=== PATIENT | female | born 1990 | race Caucasian/White ===

== ENCOUNTER 2016-12-31 16:05 | Inpatient (IN) | payer OTHER ==
[~2016-12-31] VITALS: Ht 154.9 cm; Wt 88.9 kg
[2016-12-31] MEDS ORDERED: PREN-380 PO (16:43)
[2016-12-31] MEDS ORDERED: FERR325E14 PO (16:43)
[2016-12-31] MEDS ORDERED: LACTATED RINGERS 1,000 ML IV SCH (16:44)
[2016-12-31] MEDS ORDERED: PROMETHAZINE 25 MG/ML VIAL IVP PRN (16:45)
[2016-12-31] MEDS ORDERED: CARBOPROST 250 MCG/ML AMP IM PRN (16:45)
[2016-12-31] MEDS ORDERED: NALBUPHINE HYDROCHLORIDE 10 MG/ML VIAL IVP PRN (16:45)
[2016-12-31] MEDS ORDERED: METHYLERGONOVINE 0.2 MG/ML AMP IM PRN ×2 (16:45→22:10)
[2016-12-31] MEDS ORDERED: OXYTOCIN 10 UNITS/ML VIAL IM SCH (16:45)
[2016-12-31] MEDS ORDERED: OXYTOCIN 20 UNITS/LR PREMIX 1,000 ML IV SCH (17:00)
[2016-12-31 17:24] LABS: BASOPHILS % (AUTO) 0.5 % (0.0-2.0); EOSINOPHILS % (AUTO) 0.3 % (0.0-4.0); HEMATOCRIT 38.4 % (36-48); HEMOGLOBIN 12.6 g/dL (12.0-16.0); LYMPHOCYTES # (AUTO) 1.1 K/uL (2.5-16.5); LYMPHOCYTES % (AUTO) 15.1 % (20.5-51.1); MEAN CORPUSCULAR HEMOGLOBIN 29 pg (27-31); MEAN CORPUSCULAR HGB CONC 33 g/dL (33-37); MEAN CORPUSCULAR VOLUME 89 fL (80-94); MONOCYTES # (AUTO) 0.4 K/uL (0.8-1.0); MONOCYTES % (AUTO) 6.1 % (1.7-9.3); NEUTROPHILS # (AUTO) 5.6 K/uL (1.8-7.7); PLATELET COUNT (AUTO) 194 K/uL (140-450); RED BLOOD CELL COUNT(AUTO) 4.31 MIL/uL (4.20-5.40); RED CELL DISTRIBUTION WIDTH 13.6 % (11.6-13.7); WHITE BLOOD COUNT (AUTO) 7.1 K/uL (4.8-10.8)
[2016-12-31 17:36] LABS: APPEARANCE,URINE CLEAR (CLEAR); BILIRUBIN,URINE NEGATIVE (NEGATIVE); BLOOD, URINE 1+ (NEGATIVE); COLOR,URINE YELLOW (YELLOW); LEUKOCYTE ESTERASE ,URINE NEGATIVE (NEGATIVE); NITRITE, URINE NEGATIVE (NEGATIVE); PH,URINE 6.5 (5.0-9.0); PROTEIN,URINE NEGATIVE (NEGATIVE); UGLUCOSE NEGATIVE (NEGATIVE); UROBILINOGEN,URINE 0.2 EU/dL (0.2 - 1)
[2016-12-31 17:40] LABS: ANION GAP 12.4 (8-16); CALCIUM 8.5 mg/dL (8.5-10.1); CARBON DIOXIDE 23.2 mmol/L (21-32); CREATININE 0.5 mg/dL (0.6-1.3); POTASSIUM 3.6 mmol/L (3.5-5.1)
[2016-12-31 17:41] LABS: BACTERIA,URINE 1+ /HPF (None Seen); WBC,URINE 0-3 /HPF (0-5)
[2016-12-31 17:46] LABS: TOTAL BILIRUBIN 0.4 mg/dL (0.0-1.0); TOTAL PROTEIN, SERUM 6.6 g/dL (6.4-8.2)
[2016-12-31 19:31] LABS: AMPHETAMINE, URINE NEG. ng/ml (NEG <=1000); BARBITURATE, URINE NEG. ng/ml (NEG <=200); BENZODIAZEPINE, URINE NEG. ng/mL (NEG <=200); CANNABINOID, URINE NEG. ng/mL (NEG <=50); COCAINE, URINE NEG. ng/mL (NEG <=300); OPIATE, URINE NEG. ng/mL (NEG <=2000); PHENCYCLIDINE SCREEN,URINE NEG. ng/mL (NEG <=25)
[2016-12-31] MEDS ORDERED: MISOPROSTOL 25 MCG TAB VG SCH (20:00)
[2016-12-31] MEDS ORDERED: BUPIVACAINE-MPF 0.75% 10 ML VIAL INJ ONE (21:53)
[2016-12-31] MEDS ORDERED: CITRIC ACID/SODIUM CITRATE 30 ML UDC ONE (21:54)
[2016-12-31] MEDS ORDERED: CITRIC ACID/SODIUM CITRATE 30 ML UDC PO SCH (21:55)
[2016-12-31] MEDS ORDERED: fentaNYL 0.05 MG/ML VIAL ONE (22:05)
[2016-12-31] MEDS ORDERED: OXYTOCIN 10 UNITS/ML VIAL ONE (22:06)
[2016-12-31] MEDS ORDERED: MORPHINE PRES FREE 10 MG/10 ML AMP IV ONE (22:06)
[2016-12-31] MEDS ORDERED: diphenhydrAMINE 50 MG/ML VIAL ONE (22:07)
[2016-12-31] MEDS ORDERED: OXYTOCIN 20 UNITS/LR PREMIX 1,000 ML IV ONE (22:07)
[2016-12-31] MEDS ORDERED: TRIMETHOBENZAMIDE 200 MG/2 ML SYR IM PRN (22:10)
[2016-12-31] MEDS ORDERED: TEMAZEPAM 15 MG CAP PO PRN (22:10)
[2016-12-31] MEDS ORDERED: SIMETHICONE 80 MG TAB.CHEW PO PRN (22:10)
[2016-12-31] MEDS ORDERED: MEASLES, MUMPS, AND RUBELLA 1 VIAL SQVAC PRN (22:10)
[2016-12-31] MEDS ORDERED: KETAMINE 500 MG/5 ML VIAL ONE (22:28)
[2016-12-31] MEDS ORDERED: diphenhydrAMINE 50 MG/ML VIAL IVP PRN (22:30)
[2016-12-31] MEDS ORDERED: KETOROLAC 60 MG/2 ML VIAL IM PRN (22:30)
[2016-12-31] MEDS ORDERED: ONDANSETRON 4 MG/2 ML VIAL IVP PRN ×2 (22:30)
[2016-12-31] MEDS ORDERED: NALBUPHINE 10 MG/ML AMP IVP PRN (22:30)
[2016-12-31] MEDS ORDERED: NALOXONE 0.4 MG/ML VIAL IVP PRN ×3 (22:30)
[2016-12-31] MEDS ORDERED: ONDANSETRON 4 MG/2 ML VIAL ONE (23:14)
[2016-12-31] MEDS ORDERED: METHYLERGONOVINE 0.2 MG/ML AMP ONE (23:38)
[2017-01-01] MEDS ORDERED: CARBOPROST 250 MCG/ML AMP IM ONE ×2 (00:05→00:08)
[2017-01-01 05:48] LABS: BASOPHILS % (AUTO) 0.4 % (0.0-2.0); EOSINOPHILS # (AUTO) 0.1 K/uL (0-0.4); EOSINOPHILS % (AUTO) 0.8 % (0.0-4.0); HEMATOCRIT 36.5 % (36-48); HEMOGLOBIN 12.3 g/dL (12.0-16.0); LYMPHOCYTES # (AUTO) 1.2 K/uL (2.5-16.5); MEAN CORPUSCULAR HEMOGLOBIN 30 pg (27-31); MEAN CORPUSCULAR HGB CONC 34 g/dL (33-37); MEAN CORPUSCULAR VOLUME 88 fL (80-94); MONOCYTES # (AUTO) 0.7 K/uL (0.8-1.0); MONOCYTES % (AUTO) 6.1 % (1.7-9.3); NEUTROPHILS # (AUTO) 8.8 K/uL (1.8-7.7); NEUTROPHILS % (AUTO) 81.7 % (42.2-75.2); PLATELET COUNT (AUTO) 200 K/uL (140-450); RED BLOOD CELL COUNT(AUTO) 4.15 MIL/uL (4.20-5.40); RED CELL DISTRIBUTION WIDTH 13.2 % (11.6-13.7); WHITE BLOOD COUNT (AUTO) 10.8 K/uL (4.8-10.8)
[2017-01-01] MEDS: OXYTOCIN 20 UNITS/LR PREMIX 1,000 ML IV SCH ×2 (09:03→17:28)
--- NOTE | 2017-01-01 09:49 | NUR ---
PATIENT HAS BEEN SCREENED AND CATEGORIZED LOW NUTRITION RISK. PATIENT WILL BE SEEN WITHIN 7 DAYS OF ADMISSION. 01/07/[address]
[2017-01-01] MEDS: oxyCODONE/APAP 5/325 MG 1 TAB TAB PO PRN (19:04)
[2017-01-02] MEDS: oxyCODONE/APAP 5/325 MG 1 TAB TAB PO PRN ×2 (01:01→08:37)
[2017-01-02] MEDS: IBUPROFEN 800 MG TAB PO PRN (19:47)
[2017-01-02] MEDS: DOCUSATE SOD/SENNA 50/8.6 MG 1 TAB PO SCH (20:54)
[2017-01-03] MEDS ORDERED: IBUP-2213 PO (12:43)
[2017-01-03] MEDS: IBUPROFEN 800 MG TAB PO PRN (17:14)
[2017-01-03] MEDS: DOCUSATE SOD/SENNA 50/8.6 MG 1 TAB PO SCH (21:38)
[2017-01-03] MEDS: HYDROcodone/APAP 5/325 MG 1 TAB TAB PO PRN (21:38)
[2017-01-04] MEDS: HYDROcodone/APAP 5/325 MG 1 TAB TAB PO PRN (06:17)
== END 2017-01-04 17:15 | disposition home or self-care (01) | DRG 540 ==
LOC: MLD 16:05 → MFCC 23:50
PROVIDERS: ADMIT Obstetrics & Gynecology; ATTEND Obstetrics & Gynecology
PROC: 10D00Z1 Extraction of Products of Conception, Low, Open Approach (ICD-10-PCS; principal; 2016-12-31 22:00)
PROC: 3E0234Z Introduction of Serum, Toxoid and Vaccine into Muscle, Percutaneous Approach (ICD-10-PCS; 2017-01-03)
DX: O32.1XX0 Maternal care for breech presentation, not applicable or unspecified (principal); O99.324 Drug use complicating childbirth; F32.9 Major depressive disorder, single episode, unspecified; O99.344 Other mental disorders complicating childbirth; F12.21 Cannabis dependence, in remission; O69.1XX0 Labor and delivery complicated by cord around neck, with compression, not applicable or unspecified; Z82.49 Family history of ischemic heart disease and other diseases of the circulatory system; O09.293 Supervision of pregnancy with other poor reproductive or obstetric history, third trimester; Z37.0 Single live birth; Z83.3 Family history of diabetes mellitus; Z23 Encounter for immunization; Z3A.39 39 weeks gestation of pregnancy
CPT/HCPCS: 36415; 76805; 80053; 80305; 81001; 85025; 86592; 86886; 86900; 86901; 90707; 90715; J0690; J1200; J2210; J2270; J2405; J2590; J3010; J3490; J7060; J7120; Q0092